=== PATIENT | male | born 1955 | race African-American/Black ===

== ENCOUNTER → 2017-09-06 | Day surgery (SDC) | payer OTHER ==
[~2017-09-06] MED LIST: FENTANYL CITRATE/PF 100MCG/2 ML INJ ONE; GLUCAGON FOR INJ 1 MG VIAL ONE; HYOSCYAMINE SULFATE 0.5 MG/ML AMP ONE; MIDAZOLAM HCL 2 MG/2 ML VIAL ONE; PROPOFOL IV EMULSION 10 MG/ML 50 ML VIAL ONE
--- NOTE | 2017-09-06 15:45 | Operative Report ---
DATE OF PROCEDURE: September 06, 2017 REFERRING PHYSICIAN: Dr. Ollie Villanueva. PROCEDURE PERFORMED: Colonoscopy to approximately 90 cm from the anal verge. INDICATIONS FOR COLONOSCOPY: Colorectal cancer screening. History of bright red blood per rectum. MEDICATION: Patient was done under MAC. Please see anesthesiologist's note. PROCEDURE: With the patient in the left lateral decubitus position, the flexible fiberoptic Olympus colonoscope was inserted into the rectum with ease to approximately 38 cm from the anal verge. A large circumferential obstructing mass was noted, and multiple biopsies were obtained. We were able to traverse the tumor, and the scope was advanced to approximately 90 cm from the anal verge. It could not be advanced any further, probably from looping due to the tumor. The scope was then withdrawn slowly, and the descending colon appeared to be within normal limits. The sigmoid colon distal to the aforementioned mass was suboptimally visualized due to the presence of a moderate amount of retained fecal material. The rectum grossly appeared to be within normal limits. The scope was then retroflexed into the distal rectum and moderate-sized internal hemorrhoids were noted, none of which was actively bleeding. The scope was then straightened out. It was subsequently withdrawn. Patient tolerated the procedure well. IMPRESSION: 1. Colonoscopy advanced to approximately 90 cm from the anal verge, could not be advanced any further due to looping possibly induced by the sigmoid colon mass or possibly secondary to the sigmoid colon mass. 2. Large circumferential mass approximately mid sigmoid colon. Biopsies obtained. 3. Moderate-sized internal hemorrhoids, none actively bleeding. PLAN: Follow up histology. Patient will need a CT scan of the abdomen and pelvis and a general surgical consultation. Job#: [id number] cc:MD SEAMUS SMITH MD
== END | disposition home or self-care (01) ==
LOC: OR 11:32
PROVIDERS: ATTEND Internal Medicine Gastroenterology
DX: K62.5 Hemorrhage of anus and rectum (principal); D12.5 Benign neoplasm of sigmoid colon; K64.8 Other hemorrhoids; K59.00 Constipation, unspecified; N20.0 Calculus of kidney; Z01.810 Encounter for preprocedural cardiovascular examination; Z68.25 Body mass index [BMI] 25.0-25.9, adult; Z86.2 Personal history of diseases of the blood and blood-forming organs and certain disorders involving the immune mechanism
CPT/HCPCS: 45380; 93005; J1610; J1980; J2250; 45378

== ENCOUNTER 2017-10-21 07:16 | Inpatient (IN) | payer OTHER ==
[2017-10-18 08:18] LABS: BASOPHILS # (AUTO) 0.1 (0.0-0.1); BASOPHILS % 1.1 % (0.0-1.0); EOSINOPHILS # (AUTO) 0.6 (0.0-0.4); HEMATOCRIT 30.6 % (38.2-49.6); HEMOGLOBIN 11.2 g/dL (14.0-18.0); LYMPHOCYTES # (AUTO) 2.7 (1.0-3.2); LYMPHOCYTES % 35.6 % (18.0-39.1); MEAN CORPUSCULAR HEMOGLOBIN 30.9 pg (28-32); MEAN CORPUSCULAR HGB CONC 36.6 g/dL (31-35); MEAN CORPUSCULAR VOLUME 84.5 fL (81-99); MONOCYTES # (AUTO) 0.5 (0.2-0.8); MONOCYTES % 6.4 % (4.4-11.3); NEUTROPHILS # (AUTO) 3.7 (2.1-6.9); NEUTROPHILS % 48.8 % (38.7-80.0); PLATELET COUNT 293 x10e3/uL (140-360); RED BLOOD COUNT 3.62 x10e6/uL (4.3-5.7); RED CELL DISTRIBUTION WIDTH 12.6 % (11.7-14.4)
[2017-10-18 09:14] LABS: ANION GAP 9.9 mmol/L (8-16); BLOOD UREA NITROGEN 8 mg/dL (7-26); BUN/CREATININE RATIO 11 (6-25); CALCIUM 9.4 mg/dL (8.4-10.2); CARBON DIOXIDE 26 mmol/L (22-29); CHLORIDE 101 mmol/L (98-107); CREATININE, SERUM 0.75 mg/dL (0.72-1.25); EST GLOMERULAR FILTRATION RATE > 60 ML/MIN (60-); GLUCOSE 92 mg/dL (74-118); POTASSIUM 3.9 mmol/L (3.5-5.1); SODIUM 133 mmol/L (136-145)
--- NOTE | 2017-10-18 09:15 | Diagnostic Imaging Report ---
PROCEDURE: X-RAY CHEST, TWO VIEWS COMPARISON: None. INDICATIONS: PREOPERATIVE CHEST XRAY FOR COLON SURGERY FINDINGS: The lungs are well-inflated. No airspace consolidation, pleural effusion, or pneumothorax. Mildly tortuous thoracic aorta with an otherwise normal cardiomediastinal contour. No acute osseous abnormality. CONCLUSION: No acute cardiopulmonary abnormality. Dictated by: Shawn Gonzalez M.D. on 10/18/2017 at 8:48 Electronically approved by: Shawn Gonzalez M.D. on 10/18/2017 at 8:48
[~2017-10-21] VITALS: Ht 180.3 cm; Wt 80.8 kg
[2017-10-21] MEDS: DEXTROSE 5%/LACTATED RINGERS 1,000 ML IV SCH ×2 (00:28→16:26)
[2017-10-21] MEDS ORDERED: NALOXONE HCL INJ 0.4 MG/ML AMP IV PRN (13:15)
[2017-10-21] MEDS ORDERED: HYDROMORPHONE 0.2MG/ML-SOD CHL 30ML PCA SYRINGE IV PRN (13:15)
[2017-10-21] MEDS ORDERED: ONDANSETRON HCL INJ 2 MG/ML VIAL IV PRN (13:15)
[2017-10-21] MEDS ORDERED: KETOROLAC TROMETHAMINE 30 MG/ML VIAL IV PRN (13:15)
[2017-10-21] MEDS ORDERED: ACETAMINOPHEN 1000 MG/100 ML IV PRN (13:15)
[2017-10-21] MEDS ORDERED: HYDROMORPHONE 1MG/1ML INJ ONE (13:32)
[2017-10-21] MEDS ORDERED: HYDROMORPHONE 0.2MG/ML-SOD CHL 30ML PCA SYRINGE IV ONE (13:42)
--- NOTE | 2017-10-21 14:01 | Operative Report ---
DATE OF PROCEDURE: October 21, 2017 PREOPERATIVE DIAGNOSIS: Carcinoma of the sigmoid colon. POSTOPERATIVE DIAGNOSIS: Carcinoma of the sigmoid colon. OPERATIONS PERFORMED: 1. Exploratory laparotomy. 2. Left colectomy with mobilization of the splenic flexure. PARK MAINTENANCE TECHNICIAN: Dr. Byron Méndez. ANESTHESIA: General. COMPLICATIONS: None. ESTIMATED BLOOD LOSS: 50 mL. DESCRIPTION OF PROCEDURE: With the patient lying in bed in the supine position under good general endotracheal anesthesia, the abdomen was prepped with Betadine solution and draped in the usual manner. A lower midline incision was made. It was carried down through the subcutaneous tissue into the midline fascia. The peritoneum was opened, and the abdomen was entered. Upon entering the abdominal cavity, exploration revealed a tumor in the upper sigmoid colon showing signs of partial colonic obstruction which was consistent with the colonoscopy findings preoperatively. The area was tattooed. Exploration of the rest of the abdominal cavity did not reveal any palpable masses in the rest of the colon although the proximal colon was distended from the partial obstruction and it was difficult to do an adequate examination. There was no sign of any metastatic disease to the colon. There was no major adenopathy identified. There was a small nodule in the mesentery which appeared to be probably just some calcified fat, but we resected it and sent it for pathological examination anyway. We decided to go ahead and proceed with the left colon resection with mobilization of the splenic flexure. The left colon was then mobilized off of the lateral gutter all the way up to the splenic flexure. The left ureter was identified and preserved during the entire dissection. There were some adhesions to the anterior abdominal wall at the level of the splenic flexure, and all of these were brought down and then the splenic flexure was slowly and carefully mobilized with the Enseal device and brought downward so that it would easily reach down into the pelvis. At this point, the colon was then divided at the proximal descending colon with an application of the ANGELITO 75 stapler; and similarly at the level of the rectosigmoid junction, the colon was again divided with another application of the ANGELITO 75 stapler. The mesentery of the colon was then slowly and carefully divided all the way down using the Enseal device, and the specimen was sent for pathological examination. After this was done, the colon reached easily down into the pelvis, and an anastomosis was performed in a [id number] fashion using another application of the ANGELITO 75 stapler, bringing the proximal descending colon down to the rectosigmoid junction. After this was done, the remaining opening was closed with a TA-60 stapler. Gloves and instruments were changed. The anastomosis was then reinforced with 3-0 silk sutures. The whole area was thoroughly irrigated, and perfect hemostasis was ascertained and the abdomen was then closed in layers. The peritoneum was closed with a running suture of number 1 Vicryl. The midline fascia was closed with a running suture of number 1 PDS, and the skin was closed with clips. A dressing was applied. The sponge, lap and needle count was correct. The patient tolerated the procedure well and returned to the recovery room in stable condition. Job#: [id number]
[2017-10-21] MEDS ORDERED: MIDAZOLAM HCL 2 MG/2 ML VIAL ONE (14:52)
[2017-10-21] MEDS ORDERED: FENTANYL CITRATE/PF 100MCG/2 ML INJ ONE (14:52)
[2017-10-21 15:00] VITALS: BP 120/59
[2017-10-21 15:59] VITALS: BP 120/59
[2017-10-21] MEDS: PANTOPRAZOLE 40 MG 10ML VIAL IV SCH (16:26)
[2017-10-21] MEDS: SODIUM CHLORIDE 0.9% 250ML IRRIG IR SCH ×3 (16:26→20:44)
[2017-10-21 17:00] VITALS: BP 130/67
[2017-10-21] MEDS ORDERED: CEFOXITIN 1GM/ DEXTROSE 50ML 50 ML IV SCH (18:00)
[2017-10-21] MEDS: CEFOXITIN SOD 1 GM VIAL IV SCH (18:10)
[2017-10-21 20:00] VITALS: BP 142/69
[2017-10-22] VITALS (7 sets, daily range): BP systolic 121–132; BP diastolic 65–78
[2017-10-22] MEDS: CEFOXITIN SOD 1 GM VIAL IV SCH (00:28)
[2017-10-22] MEDS: SODIUM CHLORIDE 0.9% 250ML IRRIG IR SCH ×6 (01:15→22:12)
[2017-10-22 04:56] LABS: BASOPHILS % 0.1 % (0.0-1.0); HEMATOCRIT 30.6 % (38.2-49.6); HEMOGLOBIN 10.8 g/dL (14.0-18.0); LYMPHOCYTES # (AUTO) 1.1 (1.0-3.2); MEAN CORPUSCULAR HEMOGLOBIN 30.3 pg (28-32); MEAN CORPUSCULAR HGB CONC 35.3 g/dL (31-35); MONOCYTES # (AUTO) 1.2 (0.2-0.8); MONOCYTES % 5.3 % (4.4-11.3); NEUTROPHILS # (AUTO) 19.5 (2.1-6.9); NEUTROPHILS % 89.1 % (38.7-80.0); PLATELET COUNT 295 x10e3/uL (140-360); RED BLOOD COUNT 3.56 x10e6/uL (4.3-5.7); RED CELL DISTRIBUTION WIDTH 12.6 % (11.7-14.4)
[2017-10-22 05:37] LABS: ANION GAP 10.6 mmol/L (8-16); BLOOD UREA NITROGEN 10 mg/dL (7-26); BUN/CREATININE RATIO 13 (6-25); CARBON DIOXIDE 26 mmol/L (22-29); CHLORIDE 101 mmol/L (98-107); EST GLOMERULAR FILTRATION RATE > 60 ML/MIN (60-); GLUCOSE 139 mg/dL (74-118); POTASSIUM 4.6 mmol/L (3.5-5.1); SODIUM 133 mmol/L (136-145)
[2017-10-22] MEDS: DEXTROSE 5%/LACTATED RINGERS 1,000 ML IV SCH ×2 (09:21→16:21)
[2017-10-22] MEDS: PANTOPRAZOLE 40 MG 10ML VIAL IV SCH (09:21)
[2017-10-22] MEDS ORDERED: ROCURONIUM BROMIDE 10 MG/ML 5ML VIAL IV ONE (14:05)
[2017-10-22] MEDS ORDERED: ONDANSETRON HCL INJ 2 MG/ML VIAL IV ONE (14:05)
[2017-10-22] MEDS ORDERED: LIDOCAINE HCL 2% LOCAL INJ 5 ML SDV VIAL INJ ONE (14:05)
[2017-10-22] MEDS ORDERED: NEOSTIGMINE 5 MG/5ML SYR IV ONE (14:05)
[2017-10-22] MEDS ORDERED: SEVOFLURANE INHAL SOLN 250 ML PEN BTL INH ONE (14:05)
[2017-10-22] MEDS ORDERED: DEXAMETHASONE SOD PHOS INJ 4 MG/ML VIAL IV ONE (14:05)
[2017-10-22] MEDS ORDERED: PHENYLEPHRINE HCL 1% 10 MG/ML VIAL IV ONE (14:05)
[2017-10-22] MEDS ORDERED: GLYCOPYRROLATE INJ 0.2 MG/ML VIAL IV ONE (14:05)
[2017-10-22] MEDS ORDERED: VASOPRESSIN INJ 20 UNIT/ML VIAL INJ ONE (14:05)
[2017-10-22] MEDS ORDERED: PROPOFOL IV EMULSION 10 MG/ML 20 ML VIAL IV ONE (14:05)
[2017-10-22] MEDS ORDERED: EPHEDRINE SULFATE INJ 50 MG/10 ML SYR IV ONE (14:05)
[2017-10-22] MEDS ORDERED: HYDROMORPHONE 0.2MG/ML-SOD CHL 30ML PCA SYRINGE IV PRN (19:45)
[2017-10-23] VITALS (8 sets, daily range): BP systolic 122–132; BP diastolic 70–75
[2017-10-23] MEDS: DEXTROSE 5%/LACTATED RINGERS 1,000 ML IV SCH ×3 (00:25→18:27)
[2017-10-23] MEDS: SODIUM CHLORIDE 0.9% 250ML IRRIG IR SCH ×3 (02:15→08:55)
[2017-10-23 05:51] LABS: BASOPHILS % 0.2 % (0.0-1.0); EOSINOPHILS # (AUTO) 0.1 (0.0-0.4); EOSINOPHILS % 0.4 % (0.0-6.0); HEMATOCRIT 29.3 % (38.2-49.6); HEMOGLOBIN 10.6 g/dL (14.0-18.0); LYMPHOCYTES # (AUTO) 2.4 (1.0-3.2); LYMPHOCYTES % 14.5 % (18.0-39.1); MEAN CORPUSCULAR HGB CONC 36.2 g/dL (31-35); MEAN CORPUSCULAR VOLUME 85.7 fL (81-99); NEUTROPHILS % 78.4 % (38.7-80.0); PLATELET COUNT 279 x10e3/uL (140-360); RED BLOOD COUNT 3.42 x10e6/uL (4.3-5.7); RED CELL DISTRIBUTION WIDTH 12.8 % (11.7-14.4)
[2017-10-23 06:19] LABS: ANION GAP 10.8 mmol/L (8-16); BLOOD UREA NITROGEN 6 mg/dL (7-26); BUN/CREATININE RATIO 8 (6-25); CALCIUM 9.6 mg/dL (8.4-10.2); CARBON DIOXIDE 29 mmol/L (22-29); CHLORIDE 99 mmol/L (98-107); CREATININE, SERUM 0.76 mg/dL (0.72-1.25); EST GLOMERULAR FILTRATION RATE > 60 ML/MIN (60-); GLUCOSE 103 mg/dL (74-118); POTASSIUM 3.8 mmol/L (3.5-5.1); SODIUM 135 mmol/L (136-145)
[2017-10-23] MEDS: PANTOPRAZOLE 40 MG 10ML VIAL IV SCH (08:55)
[2017-10-23] MEDS: HYDROMORPHONE 1MG/1ML INJ IV PRN ×2 (16:34→20:40)
[2017-10-23] MEDS: BISACODYL 10 MG SUPP PR SCH (20:39)
[2017-10-24] VITALS (8 sets, daily range): BP systolic 115–130; BP diastolic 55–74
[2017-10-24] MEDS: HYDROMORPHONE 1MG/1ML INJ IV PRN ×3 (04:32→20:31)
[2017-10-24 05:46] LABS: BASOPHILS # (AUTO) 0.1 (0.0-0.1); BASOPHILS % 0.5 % (0.0-1.0); EOSINOPHILS # (AUTO) 0.3 (0.0-0.4); EOSINOPHILS % 2.6 % (0.0-6.0); HEMATOCRIT 29.8 % (38.2-49.6); HEMOGLOBIN 10.6 g/dL (14.0-18.0); LYMPHOCYTES % 16.7 % (18.0-39.1); MEAN CORPUSCULAR HEMOGLOBIN 30.6 pg (28-32); MEAN CORPUSCULAR HGB CONC 35.6 g/dL (31-35); MEAN CORPUSCULAR VOLUME 86.1 fL (81-99); MONOCYTES # (AUTO) 0.9 (0.2-0.8); MONOCYTES % 7.4 % (4.4-11.3); NEUTROPHILS # (AUTO) 8.5 (2.1-6.9); NEUTROPHILS % 72.4 % (38.7-80.0); PLATELET COUNT 263 x10e3/uL (140-360); RED BLOOD COUNT 3.46 x10e6/uL (4.3-5.7); RED CELL DISTRIBUTION WIDTH 12.9 % (11.7-14.4)
[2017-10-24 06:10] LABS: BLOOD UREA NITROGEN 5 mg/dL (7-26); BUN/CREATININE RATIO 7 (6-25); CALCIUM 9.8 mg/dL (8.4-10.2); CARBON DIOXIDE 28 mmol/L (22-29); CHLORIDE 98 mmol/L (98-107); CREATININE, SERUM 0.75 mg/dL (0.72-1.25); EST GLOMERULAR FILTRATION RATE > 60 ML/MIN (60-); GLUCOSE 103 mg/dL (74-118); SODIUM 135 mmol/L (136-145)
[2017-10-24] MEDS: PANTOPRAZOLE 40 MG 10ML VIAL IV SCH (08:55)
[2017-10-24] MEDS: BISACODYL 10 MG SUPP PR SCH ×2 (08:55→20:31)
[2017-10-24] MEDS ORDERED: BISACODYL 10 MG SUPP PR ONE (11:45)
[2017-10-24] MEDS: DEXTROSE 5%/LACTATED RINGERS 1,000 ML IV SCH (11:50)
[2017-10-25] VITALS: BP 126/71
[2017-10-25] MEDS: DEXTROSE 5%/LACTATED RINGERS 1,000 ML IV SCH ×2 (01:23→16:54)
[2017-10-25 04:00] VITALS: BP 118/69
[2017-10-25] MEDS ORDERED: BISACODYL 10 MG SUPP PR ONE (08:00)
[2017-10-25 08:20] VITALS: BP 129/72
[2017-10-25] MEDS: PANTOPRAZOLE 40 MG 10ML VIAL IV SCH (08:23)
[2017-10-25] MEDS: BISACODYL 10 MG SUPP PR SCH ×2 (08:23→20:03)
[2017-10-25 11:50] VITALS: BP 133/74
[2017-10-25] MEDS: HYDROMORPHONE 1MG/1ML INJ IV PRN ×2 (12:13→19:32)
[2017-10-25] MEDS ORDERED: MAGNESIUM HYDROXIDE 30 ML UDC PO ONE ×2 (15:00)
[2017-10-25] MEDS ORDERED: HYDROCODONE/APAP 5MG-325MG TAB PO PRN (15:00)
[2017-10-25 16:17] VITALS: BP 122/69
[2017-10-25 20:00] VITALS: BP 109/69
[2017-10-26] VITALS (7 sets, daily range): BP systolic 95–126; BP diastolic 63–74
[2017-10-26] MEDS: PANTOPRAZOLE 40 MG 10ML VIAL IV SCH (09:10)
[2017-10-26] MEDS: BISACODYL 10 MG SUPP PR SCH (09:10)
[2017-10-26] MEDS: DEXTROSE 5%/LACTATED RINGERS 1,000 ML IV SCH (12:02)
[2017-10-26] MEDS: HYDROMORPHONE 1MG/1ML INJ IV PRN (16:20)
[2017-10-27] VITALS (7 sets, daily range): BP systolic 113–130; BP diastolic 60–81
[2017-10-27] MEDS: PANTOPRAZOLE 40 MG 10ML VIAL IV SCH (08:14)
[2017-10-27] MEDS: HYDROMORPHONE 1MG/1ML INJ IV PRN (23:27)
[2017-10-28 00:07] VITALS: BP 103/62
[2017-10-28 05:16] VITALS: BP 120/68
[2017-10-28 07:50] VITALS: BP 110/67
[2017-10-28] MEDS: PANTOPRAZOLE 40 MG 10ML VIAL IV SCH (08:18)
[2017-10-28] MEDS ORDERED: MAGNESIUM HYDROXIDE 30 ML UDC PO PRN (10:15)
== END 2017-10-28 10:42 | disposition home or self-care (01) | DRG 331 ==
LOC: OR 07:16 → PACU V 13:08 → MED/SURG 14:50
PROVIDERS: ADMIT Surgery; ATTEND Surgery
PROC: 0DTG0ZZ Resection of Left Large Intestine, Open Approach (ICD-10-PCS; principal; 2017-10-21 10:53)
DX: C18.7 Malignant neoplasm of sigmoid colon (principal)
CPT/HCPCS: 36415; 71046; 80048; 85025; 86850; 86900; 88305; 88307; 88309; 88311; 88342; 93005; J0694; J1100; J1170; J2001; J2250; J2370; J2405; J7120